=== PATIENT | female | born 2005 | race Two or more races ===

== ENCOUNTER 2025-04-03 01:16 | Emergency (ER) | payer OTHER ==
[~2025-04-03] VITALS: Ht 162.6 cm; Wt 97.5 kg
[2025-04-03 02:35] LABS: BASO % 0.4 % (0.1-1.2); EOS # 0.22 (0.04-0.54); EOS % 2.7 % (0.7-7.0); LYMPH # 2.74 (1.18-3.74); LYMPH % 33.4 % (19.3-53.1); MEAN PLATELET VOLUME 10.80 fl (9.4-12.4); MONO # 0.42 (0.24-0.82); MONO % 5.1 % (4.7-12.5); NEUT # 4.79 (1.56-6.13); NEUT % 58.3 % (34.0-71.1); RED CELL DISTRIBUTION WIDTH 12.6 % (11.6-14.4)
[2025-04-03 02:58] LABS: INR 0.99
[2025-04-03 03:04] LABS: ALT/SGPT 31.0 U/L (12-78); AST/SGOT 14.0 U/L (15-37); BILIRUBIN TOTAL 0.52 mg/dL (0.3-1.2); BUN CREA RATIO 16.0 (7.0-25.0); CREATININE SERUM 0.8 mg/dL (0.55-1.02); GFR 91.44; GLOBULINA 4.1 G/DL (2.4-3.5); GLUCOSE FASTING 102.0 mg/dL (65-100); HCG QUANTITATIVE 252.0 mUI/mL (1-3); OSMOLALITY SERUM 282.0 MOSM/KG (275-295)
[2025-04-03 03:52] LABS: URINE APPEARANCE Clear; URINE BILIRRUBIN Negative (NEGATIVE); URINE BLOOD Large; URINE COLOR Yellow; URINE GLUCOSE Negative (NEGATIVE); URINE KETONE Negative (NEGATIVE); URINE LEUKOCYTE Trace; URINE NITRATE Negative; URINE PROTEIN Negative (NEGATIVE); URINE UROBILINOGEN 0.2 E.U./dl
[2025-04-03 03:56] LABS: URINE BACTERIA 136.7 uL (0.0-1933); URINE EPITHELIAL CELLS 37.5 uL (0.0-38.8); URINE RBC 69.3 uL (0.0-20.8); URINE WBC 19.5 uL (0.0-23.2)
[2025-04-03 03:59] LABS: TYPE CELLS SQUAMOUS; URINE CAST 0.00 uL (0.0-1.40)
== END 2025-04-03 06:47 | disposition home or self-care (01) ==
LOC: ER 01:16
PROVIDERS: General Practice
DX: N93.9 Abnormal uterine and vaginal bleeding, unspecified (principal)

== ENCOUNTER 2025-05-17 16:03 | Emergency (ER) | payer OTHER ==
[~2025-05-17] VITALS: Ht 160 cm; Wt 99.8 kg
[2025-05-17] MEDS ORDERED: ACETAMINOPHEN 500 MG GEL..CAP PO STA (16:40)
[2025-05-17] MEDS ORDERED: FAMOTIDINE/PF 20 MG/2 ML VIAL IV STA (16:41)
[2025-05-17] MEDS ORDERED: ONDANSETRON HCL 2 MG/ML VIAL IV STA (16:41)
[2025-05-17] MEDS ORDERED: 0.9 % SODIUM CHLORIDE 500 ML IV STA (16:42)
[2025-05-17] MEDS ORDERED: FAMOTIDINE/PF 20 MG/2 ML VIAL ONE (16:56)
[2025-05-17] MEDS ORDERED: ACETAMINOPHEN 500 MG GEL..CAP PO ONE (16:56)
[2025-05-17] MEDS ORDERED: ONDANSETRON HCL 2 MG/ML VIAL ONE (16:56)
[2025-05-17 17:47] LABS: BASO % 0.4 % (0.1-1.2); EOS # 0.09 (0.04-0.54); EOS % 1.1 % (0.7-7.0); LYMPH # 1.50 (1.18-3.74); LYMPH % 18.5 % (19.3-53.1); MEAN PLATELET VOLUME 11.20 fl (9.4-12.4); MONO # 0.34 (0.24-0.82); MONO % 4.2 % (4.7-12.5); NEUT # 6.13 (1.56-6.13); NEUT % 75.7 % (34.0-71.1); RED CELL DISTRIBUTION WIDTH 12.5 % (11.6-14.4)
[2025-05-17 18:03] LABS: BUN CREA RATIO 9.0 (7.0-25.0); CREATININE SERUM 0.56 mg/dL (0.55-1.02); GFR 138.01; GLUCOSE FASTING 105.0 mg/dL (65-100); OSMOLALITY SERUM 270.0 MOSM/KG (275-295)
[2025-05-17 18:16] LABS: URINE APPEARANCE Clear; URINE BILIRRUBIN Negative (NEGATIVE); URINE BLOOD Negative; URINE COLOR Dark Yellow; URINE GLUCOSE Negative (NEGATIVE); URINE KETONE Trace (NEGATIVE); URINE LEUKOCYTE Trace; URINE NITRATE Negative; URINE PROTEIN Trace (NEGATIVE); URINE UROBILINOGEN 1.0 E.U./dl
[2025-05-17 18:21] LABS: URINE EPITHELIAL CELLS 25.2 uL (0.0-38.8); URINE RBC 5.3 uL (0.0-20.8); URINE WBC 16.8 uL (0.0-23.2)
[2025-05-17 18:30] LABS: URINE CAST 0.14 uL (0.0-1.40)
[2025-05-17] MEDS ORDERED: ONDANSETRON ODT4 MG PO (19:32)
[2025-05-17] MEDS ORDERED: PEPCID AC20 MG PO (19:32)
[2025-05-17] MEDS ORDERED: ACETAMINOPHEN500 M2 PO (19:32)
[2025-05-17] MEDS ORDERED: DUI500 PO (19:34)
== END 2025-05-17 21:00 | disposition home or self-care (01) ==
LOC: ER 16:04
PROVIDERS: General Practice
DX: O26.891 Other specified pregnancy related conditions, first trimester (principal); R10.20 Pelvic and perineal pain unspecified side; O21.8 Other vomiting complicating pregnancy; Z3A.10 10 weeks gestation of pregnancy